=== PATIENT | female | born 1995 | race African-American/Black ===

== ENCOUNTER 2022-01-30 16:12 | Emergency (ER) | payer MEDICAID ==
[~2022-01-30 16:12] MED LIST: PROZAC; SEROQUEL; TRAZADONE
[2022-01-30 17:05] LABS: Urine Bacteria FEW /hpf (None Seen); Urine Blood Negative /uL (Negative); Urine Mucus FEW (None Seen); Urine WBC 5 /hpf (0 - 5)
[2022-01-30] MEDS ORDERED: IBUPROFEN 800 MG TAB PO ONE (17:30)
[2022-01-30 17:44] VITALS: BP 148/51
[2022-01-30] MEDS ORDERED: METH750T22 PO (17:56)
[2022-01-30] MEDS ORDERED: IBUP800T27 PO (17:56)
== END 2022-01-30 18:03 | disposition home or self-care (01) ==
LOC: ER 16:12
DX: S16.1XXA Strain of muscle, fascia and tendon at neck level, initial encounter (principal); S39.012A Strain of muscle, fascia and tendon of lower back, initial encounter; I10 Essential (primary) hypertension; Z32.02 Encounter for pregnancy test, result negative; V43.52XA Car driver injured in collision with other type car in traffic accident, initial encounter; Y93.89 Activity, other specified; Y92.89 Other specified places as the place of occurrence of the external cause; Y99.8 Other external cause status
CPT/HCPCS: 72040; 81001; 81025